=== PATIENT | female | born 1945 | race Two or more races ===

== ENCOUNTER 2018-07-30 09:23 | Outpatient (CLI) | payer OTHER | END 2018-07-30 09:41 | disposition home or self-care (01) | LOC: NUCLEAR 09:23 | DX: M81.8 Other osteoporosis without current pathological fracture (principal) ==

== ENCOUNTER 2018-08-06 09:04 | Outpatient (CLI) | payer OTHER | END 2018-08-06 09:10 | disposition home or self-care (01) | LOC: MAMO-SONO 09:04 | DX: Z12.31 Encounter for screening mammogram for malignant neoplasm of breast (principal); Z87.898 Personal history of other specified conditions; N64.4 Mastodynia ==

== ENCOUNTER 2018-12-10 10:23 | Outpatient (CLI) | payer OTHER | END 2018-12-10 10:26 | disposition home or self-care (01) | LOC: SONOGRAMA 10:23 | DX: M77.42 Metatarsalgia, left foot (principal); G57.62 Lesion of plantar nerve, left lower limb; M77.52 Other enthesopathy of left foot and ankle ==

== ENCOUNTER 2020-01-11 07:42 | Outpatient (CLI) | payer OTHER | END 2020-01-11 07:57 | disposition home or self-care (01) | LOC: SONOGRAMA 07:42 → MAMO-SONO 08:15 | DX: G57.62 Lesion of plantar nerve, left lower limb (principal); M20.42 Other hammer toe(s) (acquired), left foot ==

== ENCOUNTER 2020-07-31 11:25 | Outpatient (CLI) | payer OTHER | END 2020-07-31 11:55 | disposition home or self-care (01) | LOC: NUCLEAR 11:25 | PROVIDERS: ATTEND Internal Medicine Rheumatology | DX: M81.0 Age-related osteoporosis without current pathological fracture (principal) ==

== ENCOUNTER 2022-11-20 13:46 | Emergency (ER) | payer OTHER ==
[~2022-11-20] VITALS: Ht 157.5 cm; Wt 65.8 kg
[2022-11-20] MEDS ORDERED: NEURONTIN300 MG PO (14:08)
[2022-11-20] MEDS ORDERED: CRESTOR20 MG PO (14:08)
[2022-11-20] MEDS ORDERED: AVAPRO150 MG PO (14:09)
== END 2022-11-20 16:45 | disposition home or self-care (01) ==
LOC: ER 13:46
DX: S01.122A Laceration with foreign body of left eyelid and periocular area, initial encounter (principal); W18.30XA Fall on same level, unspecified, initial encounter; Y93.9 Activity, unspecified; Y92.019 Unspecified place in single-family (private) house as the place of occurrence of the external cause; I10 Essential (primary) hypertension

== ENCOUNTER 2022-11-30 08:55 | Emergency (ER) | payer OTHER ==
[~2022-11-30] VITALS: Ht 154.9 cm; Wt 67.6 kg
[~2022-11-30 08:55] MED LIST: AVAPRO150 MG PO; CRESTOR20 MG PO; NEURONTIN300 MG PO
== END 2022-11-30 14:31 | disposition home or self-care (01) ==
LOC: ER 08:55
DX: Z48.02 Encounter for removal of sutures (principal)

== ENCOUNTER 2023-01-20 12:32 | Outpatient (CLI) | payer OTHER | END 2023-01-20 12:36 | disposition home or self-care (01) | LOC: NUCLEAR 12:32 | PROVIDERS: ATTEND Internal Medicine Rheumatology | DX: M81.0 Age-related osteoporosis without current pathological fracture (principal) ==

== ENCOUNTER 2024-01-05 07:59 | Outpatient (CLI) | payer OTHER | END 2024-01-05 08:09 | disposition home or self-care (01) | LOC: MAMO-SONO 07:59 | PROVIDERS: ATTEND Obstetrics & Gynecology | DX: N60.11 Diffuse cystic mastopathy of right breast (principal); N60.12 Diffuse cystic mastopathy of left breast; Z12.31 Encounter for screening mammogram for malignant neoplasm of breast ==

== ENCOUNTER 2025-03-29 10:28 | Outpatient (CLI) | payer OTHER | END 2025-03-29 10:30 | disposition home or self-care (01) | LOC: NUCLEAR 10:28 | PROVIDERS: ATTEND Internal Medicine Rheumatology | DX: M81.0 Age-related osteoporosis without current pathological fracture (principal) ==

== ENCOUNTER 2025-07-27 07:46 | Outpatient (CLI) | payer OTHER | END 2025-07-27 07:53 | disposition home or self-care (01) | LOC: MAMO-SONO 07:46 | PROVIDERS: ATTEND Family Medicine | DX: Z12.31 Encounter for screening mammogram for malignant neoplasm of breast (principal) ==